=== PATIENT | female | born 1985 | race Caucasian/White ===

== ENCOUNTER 2016-04-03 08:23 | Outpatient (CLI) | payer BC | END 2016-04-03 08:24 | disposition home or self-care (01) | DX: F41.1 Generalized anxiety disorder (principal) ==

== ENCOUNTER 2018-05-06 14:12 | Outpatient (CLI) | payer BC ==
[2018-05-07 06:46] LABS: PROGESTERONE 7.4 ng/mL
== END 2018-05-06 14:13 | disposition home or self-care (01) ==
LOC: LAB 14:12
PROVIDERS: ATTEND Obstetrics & Gynecology
DX: Z32.01 Encounter for pregnancy test, result positive (principal)
CPT/HCPCS: 36415; 82670; 84144; 84702

== ENCOUNTER 2018-05-10 13:52 | Outpatient (CLI) | payer BC | END 2018-05-10 23:59 | disposition home or self-care (01) | LOC: LAB.S 13:52 | PROVIDERS: ATTEND Obstetrics & Gynecology | DX: Z32.01 Encounter for pregnancy test, result positive (principal) | CPT/HCPCS: 36415; 84702 ==

== ENCOUNTER 2018-05-18 18:18 | Outpatient (CLI) | payer BC ==
--- NOTE | 2018-05-19 15:46 | Ultrasound Report ---
Reason: TEST POSITIVE Procedure Date: 05/18/2018 Accession Number: [id number] / [id number] Procedure: US - OB First Trimester CPT Code: FULL RESULT: EXAM: FIRST TRIMESTER OBSTETRIC ULTRASOUND (Less than 11 weeks) EXAM DATE: 05/18/2018 07:19 PM. CLINICAL HISTORY: test positive. LMP: January 2018. COMPARISONS: None. TECHNIQUE: Transabdominal and transvaginal ultrasound examination with static image documentation. CLINICAL DATES: Unknown. ASSESSMENT: Gestational Sac: Single intrauterine. Mean gestational sac diameter: 12 mm = 5 weeks 4 days. Embryo: CRL (crown-rump length) not seen. Cardiac activity: Not seen. Yolk sac: Not seen. Amniotic fluid: Not seen. Early placenta: Not visible at this gestational age. Other: No perigestational fluid collection demonstrated. MATERNAL STRUCTURES: Uterus: Anteverted. Mildly heterogeneous endometrium. Cervix: Closed. Right Ovary/Adnexa: The ovary measures 2.4 x 1.7 x 1.4 cm, volume 2.9 cc. Note is made of a simple paraovarian cyst which measures up to 1.4 cm. Left Ovary/Adnexa: The ovary measures 2.4 x 3.1 x 1.8 cm, volume 7 cc. 0.7 cm likely corpus luteum cyst. Free Fluid: None. Other: None. IMPRESSION: 1. of unknown location. Intrauterine fluid collection, which could represent a gestational sac, cyst or focal fluid. If this is a gestational sac, size would correspond to a gestational age of 5 weeks 4 days. 2. Suggest clinical examination as well as close interval sonographic follow-up and serial beta hCG measurements as clinically indicated. RADIA
== END 2018-05-18 18:19 | disposition home or self-care (01) ==
LOC: DI 18:18
PROVIDERS: ATTEND Obstetrics & Gynecology
DX: Z32.01 Encounter for pregnancy test, result positive (principal)
CPT/HCPCS: 76801

== ENCOUNTER 2018-05-29 22:02 | Outpatient (CLI) | payer BC ==
--- NOTE | 2018-05-31 06:16 | Ultrasound Report ---
Reason: POSITIVE TEST - CONFIRM VIABILITY Procedure Date: 05/29/2018 Accession Number: [id number] / [id number] Procedure: US - OB First Trimester CPT Code: FULL RESULT: EXAM: FIRST TRIMESTER OBSTETRIC ULTRASOUND (Less than 11 weeks) EXAM DATE: 05/29/2018 10:23 PM. CLINICAL HISTORY: POSITIVE TEST - CONFIRM VIABILITY. LMP: Unknown. COMPARISONS: OB FIRST TRIMESTER 05/18/2018 6:24 PM. TECHNIQUE: Transabdominal and transvaginal ultrasound examination with static image documentation. CLINICAL DATES: EGA 7 weeks 1 day with SHAYY 01/24/2019 based on gestational sac measurement on prior ultrasound. ASSESSMENT: Gestational Sac: Single intrauterine. Mean gestational sac diameter: 18 mm. Embryo: None visualized.. Yolk sac: Not visualized.. Amniotic fluid: Not accurately assessed at this gestational age. Early placenta: Not visible at this gestational age. Other: 7 mm perigestational collection.. MATERNAL STRUCTURES: Uterus: Anteverted. Unremarkable. Cervix: Closed. Right Ovary/Adnexa: The ovary measures 2.6 x 2.2 x 1.8 cm, volume 5 cc. Stable right paraovarian cyst.. Left Ovary/Adnexa: The ovary measures 2.6 x 2.3 x 2.0 cm, volume 6 cc. 1.3 cm corpus luteum. Free Fluid: None. Other: None. IMPRESSION: 1. 18 mm gestational sac, without yolk sac or pole visualized, compatible with an anembryonic gestation. ARRON The critical result notification system was initiated by Dr. Delio Suggs at 12:29 AM on 05/30/2018. The above critical result findings were discussed with Dr. Velázquez by Dr. Delio Suggs at 12:39 AM on 05/30/2018.
== END 2018-05-29 22:03 | disposition home or self-care (01) ==
LOC: DI 22:02
PROVIDERS: ATTEND Registered Nurse
DX: O34.81 Maternal care for other abnormalities of pelvic organs, first trimester (principal); Z3A.01 Less than 8 weeks gestation of pregnancy
CPT/HCPCS: 76801; 76817

== ENCOUNTER 2018-05-31 08:00 | Outpatient (CLI) | payer BC | END 2018-05-31 23:59 | disposition home or self-care (01) | LOC: LAB.S 08:00 | PROVIDERS: ATTEND Obstetrics & Gynecology | DX: O20.0 Threatened abortion (principal) | CPT/HCPCS: 36415; 84702; 86850; 86900; 86901 ==

== ENCOUNTER 2018-06-02 13:32 | Outpatient (CLI) | payer BC | END 2018-06-02 13:33 | disposition home or self-care (01) | LOC: LAB.F 13:32 | PROVIDERS: ATTEND Obstetrics & Gynecology | DX: O20.0 Threatened abortion (principal) | CPT/HCPCS: 36415; 84702 ==

== ENCOUNTER 2018-07-12 16:09 | Outpatient (CLI) | payer BC ==
[2018-07-12 16:35] LABS: HGB - HEMOGLOBIN 13.3 g/dL (12.0-16.0); MEAN CORPUSCULAR HGB CONC 33.9 g/dL (32.0-36.0); MEAN CORPUSCULAR VOLUME 94.2 fL (81.0-99.0); MEAN PLATELET VOLUME 7.8 fL (7.9-10.8); RED BLOOD COUNT 4.16 10^6/uL (4.20-5.40)
[2018-07-12 17:04] LABS: T4 (THYROXINE) 8.9 ug/dL (6.09-12.23)
[2018-07-12 17:07] LABS: THYROID STIMULATING HORMONE 1.81 uIU/mL (0.34-5.60)
[2018-07-12 17:08] LABS: % IRON SATURATION 20 % (20-50); IRON 88 ug/dL (28-170); TOTAL IRON BINDING CAPACITY 448 ug/dL (250-450); TRANSFERRIN 320 mg/dL (192-382)
[2018-07-12 17:12] LABS: FERRITIN 34.3 ng/mL (11.0-306.8)
[2018-07-12 17:13] LABS: PROLACTIN 2.32 ng/mL
[2018-07-12 17:35] LABS: FOLLICLE STIMULATING HORMONE 7.96 mIU/mL
[2018-07-13 09:16] LABS: ESTRADIOL 42 pg/mL
[2018-07-14 15:46] LABS: DHEA SULFATE 385 mcg/dL (23-266)
== END 2018-07-12 16:10 | disposition home or self-care (01) ==
LOC: LAB 16:09
PROVIDERS: ATTEND Obstetrics & Gynecology
DX: O03.9 Complete or unspecified spontaneous abortion without complication (principal); E28.2 Polycystic ovarian syndrome; L65.9 Nonscarring hair loss, unspecified; N91.5 Oligomenorrhea, unspecified
CPT/HCPCS: 36415; 80053; 80061; 81599; 82627; 82670; 82728; 83001; 83540; 83721; 84146; 84436; 84443; 84466; 84702; 85027

== ENCOUNTER 2018-07-16 10:27 | Outpatient (CLI) | payer BC ==
[2018-07-16 18:29] LABS: ALBUMIN 4.3 g/dL (3.2-5.5); ALBUMIN/GLOBULIN RATIO 1.3 (1.0-2.2); ALKALINE PHOSPHATASE 55 IU/L (42-121); ALT ALANINE AMINOTRANSFERASE 13 IU/L (10-60); AST ASPARTATE AMINOTRANSFERASE 20 IU/L (10-42); BILIRUBIN,TOTAL 0.9 mg/dL (0.2-1.0); BUN - BLOOD UREA NITROGEN 13 mg/dL (6-20); CALCIUM 9.2 mg/dL (8.5-10.3); CARBON DIOXIDE - CO2 26 mmol/L (21-32); CHLORIDE 100 mmol/L (101-111); CHOL/HDL RATIO 3.1 (<4.4); CHOLESTEROL 209 mg/dL; CREATININE 0.6 mg/dL (0.4-1.0); GFR - MDRD 114 (>89); GLUCOSE 92 mg/dL (70-100); HDL CHOLESTEROL 67 mg/dL; LDL CHOLESTEROL,CALCULATED 128 mg/dL; LDL/HDL RATIO 1.9 (<4.4); SODIUM 136 mmol/L (135-145); TOTAL PROTEIN 7.5 g/dL (6.7-8.2); VLDL CHOLESTEROL 14 mg/dL
== END 2018-07-16 10:28 | disposition home or self-care (01) ==
LOC: LAB.F 10:27
PROVIDERS: ATTEND Obstetrics & Gynecology
DX: O03.9 Complete or unspecified spontaneous abortion without complication (principal); E28.2 Polycystic ovarian syndrome; L65.9 Nonscarring hair loss, unspecified
CPT/HCPCS: 36415; 80053; 80061; 81599; 83721

== ENCOUNTER 2018-09-16 15:04 | Outpatient (CLI) | payer BC ==
--- NOTE | 2018-09-17 11:42 | Ultrasound Report ---
Reason: POLYCYSTIC OVARIAN SYNDROME, SAB, OLIGOMENORRHEA Procedure Date: 09/16/2018 Accession Number: [id number] / [id number] Procedure: US - Pelvic w/Transvaginal CPT Code: FULL RESULT: EXAM: PELVIC ULTRASOUND EXAM DATE: 09/16/2018 05:39 PM. CLINICAL HISTORY: Polycystic ovarian syndrome, history of spontaneous , oligomenorrhea. COMPARISON: None. TECHNIQUE: Realtime transabdominal pelvic scan performed to identify the uterus and adnexa and as an overview of other pelvic structures, followed by transvaginal scan to provide greater detail of the uterus and adnexa, with static image documentation. FINDINGS: Uterus: 6.9 x 3.3 x 3.8 cm, volume 41 cc. Anteverted position. Normal overall size and echotexture. Masses: None. Endometrium: 5 mm. Normal. Cervix: Nabothian cysts are present. Right Ovary: 3.1 x 2.1 x 2.8 cm, volume 9.5 cc. The ovary is upper limits of normal in size and demonstrates small peripheral follicles. Follicles measure up to 1.4 cm maximally. No evidence for torsion. Left Ovary: 2.6 x 1.8 x 2.8 cm, volume 6.8 cc. Multiple small peripheral follicles are present. No evidence for torsion. Free Fluid: None. Other: None. IMPRESSION: 1. Multiple small peripheral follicles about the ovaries bilaterally which can be seen with polycystic ovarian syndrome in the correct clinical setting. 2. Normal endometrium. RADIA
== END 2018-09-16 15:05 | disposition home or self-care (01) ==
LOC: DI 15:04
PROVIDERS: ATTEND Obstetrics & Gynecology
DX: E28.2 Polycystic ovarian syndrome (principal); O03.9 Complete or unspecified spontaneous abortion without complication
CPT/HCPCS: 76830; 76856

== ENCOUNTER 2018-10-18 15:06 | Outpatient (CLI) | payer BC ==
[2018-10-18 15:44] LABS: HB2 TOTAL 14.3 g/dL; HEMOGLOBIN A1C 0.51 g/dL; HEMOGLOBIN A1C % 5.4 % (4.6-6.2)
== END 2018-10-18 15:07 | disposition home or self-care (01) ==
LOC: LAB 15:06
PROVIDERS: ATTEND Obstetrics & Gynecology
DX: E28.2 Polycystic ovarian syndrome (principal)
CPT/HCPCS: 36415; 82947; 83036

== ENCOUNTER 2019-02-05 09:49 | Outpatient (CLI) | payer BC ==
--- NOTE | 2019-02-05 21:14 | Ultrasound Report ---
Reason: ABD PAIN RUQ Procedure Date: 02/05/2019 Accession Number: [id number] / [id number] Procedure: US - Abdomen Limited CPT Code: Final Report FULL RESULT: EXAM: ABDOMEN ULTRASOUND LIMITED, RUQ EXAM DATE: 02/05/2019 10:24 AM. CLINICAL HISTORY: ABD PAIN RUQ. COMPARISON: None. TECHNIQUE: Real-time scanning was performed with static images obtained. FINDINGS: Liver: Normal in size and echotexture. 13.5 cm. Main portal vein flow: Hepatopetal. Gallbladder: Normal. No stones, wall thickening, or sonographic Vann's sign.A gall bladder polyp measuring 4 mm. Biliary System: CBD measures 3 mm. No intrahepatic or extrahepatic ductal dilatation. Other: Normal right kidney. Normal pancreas to the extent seen.No free fluid. IMPRESSION: A 4 mm GB polyp. No cholelithiasis or cholecystitis. RADIA
== END 2019-02-05 09:50 | disposition home or self-care (01) ==
LOC: DI 09:49
PROVIDERS: ATTEND Internal Medicine
DX: K82.4 Cholesterolosis of gallbladder (principal)
CPT/HCPCS: 76705

== ENCOUNTER 2019-03-23 15:36 | Outpatient (CLI) | payer BC ==
--- NOTE | 2019-03-24 15:44 | Ultrasound Report ---
Reason: POSITIVE TEST Procedure Date: 03/23/2019 Accession Number: [id number] / [id number] Procedure: US - OB First Trimester CPT Code: Final Report FULL RESULT: EXAM: FIRST TRIMESTER OBSTETRIC ULTRASOUND (Less than 11 weeks) EXAM DATE: 03/23/2019 04:39 PM. CLINICAL HISTORY: Positive test. LMP: 01/26/2019. COMPARISONS: OB FIRST TRIMESTER 05/29/2018 10:23 PM. TECHNIQUE: Transabdominal and transvaginal ultrasound examination with static image documentation. CLINICAL DATES: EGA 8 weeks 0 days with SHAYY 11/02/2019 based on LMP. ASSESSMENT: Gestational Sac: Single intrauterine. Mean gestational sac diameter: 21 mm = 7 weeks 0 days. Embryo: CRL (crown-rump length) 8 mm = 6 weeks 5 days. Cardiac activity: 135 beats per minute. Yolk sac: 5 mm. Amniotic fluid: Not accurately assessed at this gestational age. Early placenta: Not visible at this gestational age. Other: 15 x 18 mm perigestational fluid collection. MATERNAL STRUCTURES: Uterus: Anteverted. Unremarkable. Cervix: Closed. Right Ovary/Adnexa: The ovary measures 2.9 x 2.0 x 2.9 cm, volume 8.4 cc. 1.6 x 1.2 x 1.8 cm cyst. Left Ovary/Adnexa: The ovary measures 2.9 x 1.4 x 2.5 cm, volume 5.2 cc. 1.6 x 1.2 x 1.5 cm. BI-RAD SCORE: 6 (Known Biopsy With Proven Malignancy) 1.6 x 1.2 x 1.2 cm paraovarian cyst. Free Fluid: None. Other: None. IMPRESSION: 1. Single viable intrauterine at EGA 6 weeks 5 days with SHAYY 11/11/2019 based on crown-rump length. Possible dating discrepancy with LMP. 2. Small perigestational fluid collection. RADIA
== END 2019-03-23 15:37 | disposition home or self-care (01) ==
LOC: DI 15:36
PROVIDERS: ATTEND Obstetrics & Gynecology
DX: Z32.01 Encounter for pregnancy test, result positive (principal)
CPT/HCPCS: 76801; 76817

== ENCOUNTER 2019-04-07 08:00 | Outpatient (CLI) | payer BC ==
[2019-04-08 14:55] LABS: MUDS CUTOFF CONCENTRATIONS CUTOFF CONC BELOW:
[2019-04-08 15:19] LABS: BILIRUBIN,URINE NEGATIVE (NEGATIVE); GLUCOSE, URINE (UA) NEGATIVE (NEGATIVE); KETONES,URINE (UA) NEGATIVE (NEGATIVE); LEUKOCYTE ESTERASE, URINE TRACE (NEGATIVE); NITRITE,URINE NEGATIVE (NEGATIVE); OCCULT BLOOD,URINE NEGATIVE (NEGATIVE); PROTEIN,URINE NEGATIVE (NEGATIVE); UROBILINOGEN,URINE 0.2 (NORMAL) E.U./dL (NORMAL)
[2019-04-08 15:32] LABS: AMPHETAMINE SCREEN,URINE NEGATIVE (NEGATIVE); BENZODIAZEPINES SCREEN, URINE NEGATIVE (NEGATIVE); COCAINE SCREEN URINE NEGATIVE (NEGATIVE); METHADONE SCREEN, URINE NEGATIVE (NEGATIVE); METHAMPHETAMINES SCREEN, URINE NEGATIVE (NEGATIVE); OPIATE SCREEN, URINE NEGATIVE (NEGATIVE); OXYCODONE SCREEN, URINE NEGATIVE (NEGATIVE); PROPOXYPHENE SCREEN, URINE NEGATIVE (NEGATIVE); TRICYCLIC ANTIDEPRESSANT,URINE NEGATIVE (NEGATIVE)
[2019-04-08 15:55] LABS: BACTERIA,URINE Moderate /HPF (None Seen); CLARITY,URINE CLEAR (CLEAR); RBC,URINE None Seen /HPF (0-5); SQUAMOUS EPITHELIAL CELL,UR MOD Squamous (<= Few)
[2019-04-08 15:56] LABS: MUCUS,URINE Moderate Strands
[2019-04-08 23:01] LABS: TRICHOMONAS VAGINALIS DNA NEGATIVE (NEGATIVE)
== END 2019-04-07 23:59 | disposition home or self-care (01) ==
LOC: LAB.R 08:00
PROVIDERS: ATTEND Obstetrics & Gynecology
DX: Z36.89 Encounter for other specified antenatal screening (principal)
CPT/HCPCS: 80306; 81001; 87086; 87491; 87591; 87661

== ENCOUNTER 2019-04-19 15:08 | Outpatient (CLI) | payer BC ==
[2019-04-19 15:19] LABS: MUDS CUTOFF CONCENTRATIONS CUTOFF CONC BELOW:
[2019-04-19 17:10] LABS: BILIRUBIN,URINE NEGATIVE (NEGATIVE); GLUCOSE, URINE (UA) NEGATIVE (NEGATIVE); KETONES,URINE (UA) TRACE mg/dL (NEGATIVE); LEUKOCYTE ESTERASE, URINE TRACE (NEGATIVE); NITRITE,URINE NEGATIVE (NEGATIVE); OCCULT BLOOD,URINE NEGATIVE (NEGATIVE); PH,URINE 5.5 PH (5.0-7.5); PROTEIN,URINE NEGATIVE (NEGATIVE); UROBILINOGEN,URINE 0.2 (NORMAL) E.U./dL (NORMAL)
[2019-04-19 17:12] LABS: BASOPHILS # (AUTO) 0.1 10^3/uL (0.0-0.1); BASOPHILS % (AUTO) 0.8 %; EOSINOPHILS # (AUTO) 0.2 10^3/uL (0.0-0.7); EOSINOPHILS % (AUTO) 2.8 %; HGB - HEMOGLOBIN 12.9 g/dL (12.0-16.0); LYMPHOCYTES # (AUTO) 1.5 10^3/uL (1.5-3.5); LYMPHOCYTES % (AUTO) 18.8 %; MEAN CORPUSCULAR HEMOGLOBIN 30.5 pg (27.0-31.0); MEAN CORPUSCULAR HGB CONC 33.4 g/dL (32.0-36.0); MEAN CORPUSCULAR VOLUME 91.3 fL (81.0-99.0); MEAN PLATELET VOLUME 10.4 fL (7.9-10.8); MONOCYTES # (AUTO) 0.5 10^3/uL (0.0-1.0); MONOCYTES % (AUTO) 6.2 %; NEUTROPHILS # (AUTO) 5.5 10^3/uL (1.5-6.6); PLT - PLATELET COUNT 309 10^3/uL (130-450); RED BLOOD COUNT 4.23 10^6/uL (4.20-5.40); RED CELL DISTRIBUTION WIDTH 11.1 % (12.0-15.0); WHITE BLOOD COUNT 7.8 x10^3/uL (4.8-10.8)
[2019-04-19 17:18] LABS: CLARITY,URINE CLOUDY (CLEAR)
[2019-04-19 17:19] LABS: AMPHETAMINE SCREEN,URINE NEGATIVE (NEGATIVE); BENZODIAZEPINES SCREEN, URINE NEGATIVE (NEGATIVE); COCAINE SCREEN URINE NEGATIVE (NEGATIVE); METHADONE SCREEN, URINE NEGATIVE (NEGATIVE); METHAMPHETAMINES SCREEN, URINE NEGATIVE (NEGATIVE); OPIATE SCREEN, URINE NEGATIVE (NEGATIVE); OXYCODONE SCREEN, URINE NEGATIVE (NEGATIVE); PROPOXYPHENE SCREEN, URINE NEGATIVE (NEGATIVE); TRICYCLIC ANTIDEPRESSANT,URINE NEGATIVE (NEGATIVE)
[2019-04-19 17:38] LABS: % IRON SATURATION 27 % (20-50); IRON 126 ug/dL (28-170); TOTAL IRON BINDING CAPACITY 462 ug/dL (250-450); TRANSFERRIN 330 mg/dL (192-382)
[2019-04-19 17:43] LABS: FERRITIN 77.4 ng/mL (11.0-306.8)
[2019-04-19 17:47] LABS: AMORPHOUS SEDIMENT,UR Marked /LPF; BACTERIA,URINE None Seen /HPF (None Seen); RBC,URINE 0-5 /HPF (0-5); SQUAMOUS EPITHELIAL CELL,UR FEW Squamous (<= Few)
[2019-04-19 22:05] LABS: TRICHOMONAS VAGINALIS DNA NEGATIVE (NEGATIVE)
[2019-04-20 12:26] LABS: HEPATITIS C ANTIBODY NON-REACTIVE (NON-REACTIVE)
[2019-04-20 12:27] LABS: HEPATITIS B SURFACE ANTIGEN NON-REACTIVE (NON-REACTIVE)
[2019-04-20 14:15] LABS: HIV AG/AB 4TH GEN NON-REACTIVE (NON-REACTIVE)
== END 2019-04-19 15:09 | disposition home or self-care (01) ==
LOC: LAB.S 15:08
PROVIDERS: ATTEND Obstetrics & Gynecology
DX: Z34.00 Encounter for supervision of normal first pregnancy, unspecified trimester (principal); Z36.89 Encounter for other specified antenatal screening; L65.9 Nonscarring hair loss, unspecified
CPT/HCPCS: 36415; 80306; 81001; 81599; 82728; 83540; 84443; 84466; 85025; 86592; 86762; 86803; 86850; 86900; 86901; 87086; 87340; 87389; 87491; 87591; 87661

== ENCOUNTER 2019-06-03 14:21 | Outpatient (CLI) | payer BC | END 2019-06-03 23:59 | disposition home or self-care (01) | LOC: LAB.WCP 14:21 | PROVIDERS: ATTEND Obstetrics & Gynecology | DX: Z34.00 Encounter for supervision of normal first pregnancy, unspecified trimester (principal); Z36.9 Encounter for antenatal screening, unspecified | CPT/HCPCS: 36415; 81599; 82105; 82950 ==

== ENCOUNTER 2019-09-02 12:50 | Outpatient (CLI) | payer BC ==
[2019-09-02 20:30] LABS: HGB - HEMOGLOBIN 11.4 g/dL (12.0-16.0); MEAN CORPUSCULAR HEMOGLOBIN 31.8 pg (27.0-31.0); MEAN CORPUSCULAR HGB CONC 32.6 g/dL (32.0-36.0); MEAN CORPUSCULAR VOLUME 97.8 fL (81.0-99.0); RED BLOOD COUNT 3.58 10^6/uL (4.20-5.40); RED CELL DISTRIBUTION WIDTH 12.3 % (12.0-15.0); WHITE BLOOD COUNT 10.6 x10^3/uL (4.8-10.8)
== END 2019-09-02 12:51 | disposition home or self-care (01) ==
LOC: LAB.S 12:50
PROVIDERS: ATTEND Obstetrics & Gynecology
DX: Z34.90 Encounter for supervision of normal pregnancy, unspecified, unspecified trimester (principal)
CPT/HCPCS: 36415; 82950; 85027

== ENCOUNTER 2019-10-18 15:50 | Outpatient (CLI) | payer BC | END 2019-10-18 23:59 | disposition home or self-care (01) | LOC: LAB.R 15:50 | PROVIDERS: ATTEND Obstetrics & Gynecology | DX: Z36.85 Encounter for antenatal screening for Streptococcus B (principal) | CPT/HCPCS: 81599; 87491; 87591; 87797 ==

== ENCOUNTER 2019-11-18 07:12 | Inpatient (IN) | payer BC ==
[2019-11-18] MEDS ORDERED: SODIUM CHLORIDE FLUSH 0.9% 10 ML SYRINGE IVP PRN (08:30)
[2019-11-18] MEDS ORDERED: OXYTOCIN 10 UNIT/ML VIAL IM PRN (08:30)
[2019-11-18] MEDS ORDERED: CARBOPROST TROMETHAMINE 250 MCG/ML AMP IM PRN (08:30)
[2019-11-18] MEDS ORDERED: OXYTOCIN/SODIUM CHLORIDE 500 ML IV PRN (08:30)
[2019-11-18] MEDS ORDERED: LIDOCAINE-MPF 1% 30 ML VIAL ID PRN (08:30)
[2019-11-18] MEDS ORDERED: TRANEXAMIC ACID 1,000 MG in SODIUM CHLORIDE 0.9% 100ML 100 ML IV PRN (08:30)
[2019-11-18] MEDS ORDERED: miSOPROStoL 200 MCG TABLET BC PRN (08:30)
[2019-11-18] MEDS ORDERED: METHYLERGONOVINE 0.2 MG/ML VIAL IM PRN (08:30)
[2019-11-18] MEDS ORDERED: SODIUM CHLORIDE FLUSH 0.9% 10 ML SYRINGE IVP SCH (09:00)
[2019-11-18] MEDS ORDERED: miSOPROStoL 100 MCG TABLET VG SCH (09:00)
[2019-11-18] MEDS ORDERED: CALCIUM CARBONATE CHEW 500 MG TABLET PO PRN (09:01)
[2019-11-18] MEDS: LACTATED RINGERS 1,000 ML IV SCH ×2 (09:51→21:27)
[2019-11-18] MEDS: miSOPROStoL 100 MCG TABLET BC SCH ×2 (09:56→14:42)
--- NOTE | 2019-11-18 10:04 | HISTORY & PHYSICAL EXAMINATION ---
Admit History - Visit Reason Visit Reason: Other - : 3 Parity: 0 Premature: 0 Ectopic: 0 : 2 Care: positive: [facility] Risk/History: positive: None Complications This : positive: None Smoking Status: Never smoker - Mother's Labs Mother's Blood Type: positive: O Mother's RH: positive: Positive GBS: positive: Group B Step Negative Rubella Status: positive: Immune Meds/Allgy - Allergies Allergies/Adverse Reactions: Allergies Allergy/AdvReac Type Severity Reaction Status Date / Time Fish Containing Products Allergy Unknown Verified 11/18/19 08:47 shellfish derived Allergy Unknown Verified 11/18/19 08:47 Review of Systems - Constitutional Constitutional: denies: Fatigue, Fever, Chills - Eyes Eyes: denies: Blurred vision, Spots in vision, Dipolpia - Cardiovascular Cariovascular: denies: Irregular heart rate, Palpitations, Chest pain, Edema - Respiratory Respiratory: denies: Cough, SOB at rest - Gastrointestinal Gastrointestinal: denies: Change in bowel habits - Integumentary Integumentary: denies: Rash, Pruritis - Neurological Neurological: denies: Headache Physical - Abdominal Exam Vital Signs: Temp Pulse Resp BP Pulse Ox 37.2 C 96 20 132/88 H 11/18/19 07:37 11/18/19 07:37 11/18/19 07:37 11/18/19 07:37 Contraction Frequency (min/apart): 2-3 Contraction Intensity: positive: Mild Uterine Resting Tone: positive: Soft - Monitoring Heart Rate Baseline: 135 Strip Review: positive: Category I - Presentation Presentation: positive: Vertex - Vaginal Exam Membranes: positive: Membranes intact Dilation (in cm): closed Plan for Labor - Plan For Labor I expect patient to be DC'd or transferred within 96 hours.: Yes Plan for Labor: HPI: Samantha is a 34yo @ 41.0wks by 6.5wk U/S presents to [facility] for medical induction of labor secondary to postdates . She has been a patient of [facility] through the duration of her which has remained uncomplicated. She denies vaginal bleeding or leakage of fluid. She denies contractions which she can appreciate and was surprised to see contractions via tocometry on the monitor. She reports +FM. She will be admitted to [facility] for active management. DATING: LMP 01/26/19--> SHAYY 11/02/2019 US on 03/23/2019 at 6w5d gives SHAYY 11/11/2019; NOT consistent with dates SHAYY definitive 11/11/2019 OB Hx: G1: SAB @ 8wks 06/2018 G2: Chemical 01/2019 G3: Current Medications: PNV; Famotidine; Zyrtex; Vitamin B6; Cod liver oil; Magnesium 400mg daily Allergies: Azithromycin (moderate); Fish (Critical) PMHx: Anxiety, BOWIE/migraines; PCOS; infertility Surgical Hx: None Social Hx: Never smoker, no ETOH or IVDA. Lives in [place], [place] with (mylene aguila) Family Hx: Diabetes- MGM; Thyroid disorder - Mother; Lymphoma- MGM O pos/Rub imm NIPT 46 XX with AFP wnl FAS Declined after extensive counseling regarding rsks. TDAP at 28 wga. Reviewed import. Declines despite [employer] travel counselor Flu: Declined 11/10/2019 Early glucola 114. Glucola 102 Breast pump Rx: Rx provided HSV: denies GBS neg Agrees to 36 week bedside us--> vertex Anticipate Pap NILM 05/30/19 Physical Exam: Normocephalic, atraumatic Heart RRR w/o M/G/R Lungs CTAB Abdomen gravid, soft, notender FHR baseline 130, moderate variability, + accels, no decels Contractions palpate mild every 2-3 minutes with soft resting tone. Pt unable to appreciate contractions. SVE in office yesterday closed/70/medium, high, posterior, vertex. SVE deferred today Bilateral LE's no edema Mood is good. Assessment: 34yo @ 41.0wks gestation by 6.5wk U/S Postdates Medical induction of labor secondary to postdates GBS negative Plan: Place in observation status for preinduction cervical ripening with misoprostol Admit with active labor, SROM, epidural placement or initiations of pitocin Continuous monitoring Anticipate Pt and at the bedside verbalized understanding and agrees to above plan. She denies further questions or concerns at this time.
[2019-11-18 10:15] LABS: BASOPHILS # (AUTO) 0.1 10^3/uL (0.0-0.1); BASOPHILS % (AUTO) 0.6 %; EOSINOPHILS # (AUTO) 0.2 10^3/uL (0.0-0.7); EOSINOPHILS % (AUTO) 2.3 %; HGB - HEMOGLOBIN 11.2 g/dL (12.0-16.0); LYMPHOCYTES # (AUTO) 1.3 10^3/uL (1.5-3.5); MEAN CORPUSCULAR HEMOGLOBIN 29.9 pg (27.0-31.0); MEAN CORPUSCULAR HGB CONC 32.3 g/dL (32.0-36.0); MEAN CORPUSCULAR VOLUME 92.5 fL (81.0-99.0); MEAN PLATELET VOLUME 10.1 fL (7.9-10.8); MONOCYTES # (AUTO) 0.7 10^3/uL (0.0-1.0); MONOCYTES % (AUTO) 6.5 %; PLT - PLATELET COUNT 322 10^3/uL (130-450); RED BLOOD COUNT 3.75 10^6/uL (4.20-5.40); RED CELL DISTRIBUTION WIDTH 13.2 % (12.0-15.0); WHITE BLOOD COUNT 10.3 x10^3/uL (4.8-10.8)
--- NOTE | 2019-11-18 19:09 | PROVIDER PROGRESS NOTE ---
Labor Progress Note - Uterine Monitoring Uterine Monitoring Mode: positive: External toco Contraction Frequency (min/apart): 2-5 Contraction Intensity: positive: Moderate Uterine Resting Tone: positive: Soft - Monitoring Monitor Mode: positive: External ultrasound Heart Rate Baseline: 130 Heart Rate Variability: positive: Moderate (6-25 bmp) Accelerations: positive: Present, 15x15 Decelerations: positive: None Strip Review: positive: Category I - Labor Progress Note Labor Progress Note/Additional Text: S: Breathing through contractions in the jacuzzi. Feeling increased frequency and intensity of contractions but overall coping well. O: FHR baseline 135, moderate variability, + accels, no decels Contractions palpate moderate every 3-5 minutes with soft resting tone. s/p 2 doses of 50mcg buccual misoprostol SVE deferred A: 34yo @ 41.0wks gestation postdates FHR Category I GBS neg P: Continuous monitoring Hold misoprostol until next SVE Anticipate
--- NOTE | 2019-11-18 19:30 | PROVIDER PROGRESS NOTE ---
Labor Progress Note - Uterine Monitoring Uterine Monitoring Mode: positive: External toco Contraction Frequency (min/apart): 2-3 Contraction Intensity: positive: Moderate Uterine Resting Tone: positive: Soft - Monitoring Monitor Mode: positive: External ultrasound Heart Rate Baseline: 135 Heart Rate Variability: positive: Moderate (6-25 bmp) Accelerations: positive: Present, 15x15 Decelerations: positive: None Strip Review: positive: Category I - Vaginal Exam Dilation (in cm): 2-3 Effacement (%): 60 Station: -1 Cervical Position: Midposition - Labor Progress Note Labor Progress Note/Additional Text: S: Breathing through contractions. Pt requests epidural for pain management. D esires epidural placement prior to initiation of pitocin. supportive at the bedside. O: SVE 2-3/70/-1, midposition, soft, vertex FHR basleine 135, moderate variability, + accels, no decels Contractions palpate moderate every 2-4 minutes with soft resting tone SROM x 5hrs - afebrile A: 34yo @ 41.0wks gestation by 6.5wk U/S Early labor post-dates GBS neg P: Anesthesia notified to present for placement of epidural Initiate pitocin with titration per protocol for induction of labor secondary to post-dates Continuous monitoring Anticipate Reviewed plan of care with pt and and bedside who verbalized understanding and are in agreement with the above plan. They deny further questions or concerns at this time.
[2019-11-18] MEDS ORDERED: OXYTOCIN/SODIUM CHLORIDE 500 ML IV SCH (20:00)
[2019-11-18] MEDS ORDERED: ROPIVACAINE 0.2% PF 20ML VIAL ONE (20:18)
[2019-11-18] MEDS ORDERED: ROPIVACAINE 0.2% 200 MG/100 ML BAG EP ONE (20:18)
[2019-11-18] MEDS ORDERED: ONDANSETRON 4 MG/2 ML VIAL IVP PRN (20:52)
[2019-11-18] MEDS ORDERED: METOCLOPRAMIDE 10 MG/2 ML VIAL IVP PRN (20:52)
[2019-11-18] MEDS ORDERED: ROPIVACAINE 0.2% 200 MG/100 ML BAG EP PRN (20:52)
[2019-11-18] MEDS ORDERED: ePHEDrine 50 MG/ML VIAL IVP PRN (20:52)
[2019-11-18] MEDS ORDERED: diphenhydrAMINE INJ 50 MG/ML VIAL IVP PRN (20:52)
[2019-11-18] MEDS ORDERED: NALBUPHINE 10 MG/ML AMP IVP PRN (20:52)
[2019-11-18] MEDS ORDERED: NALOXONE 0.4 MG/ML VIAL IVP PRN (20:52)
--- NOTE | 2019-11-18 20:52 | ANESTHESIA ---
Pre-Anesthesia VS, & Labs - Diagnosis Term labor, IUP - Procedure Epidural for Vital Signs: Temp Pulse Resp BP Pulse Ox 37.2 C 96 20 132/88 H 11/18/19 07:37 11/18/19 07:37 11/18/19 07:37 11/18/19 07:37 Height: 5 ft 6 in Weight (kg): 94.347 kg Body Mass Index: 33.5 BMI Classification: Obese - NPO Last Fluid Intake: t/o day Last Food Intake: full dinner - Is Patient ?: Yes - Lab Results Current Lab Results: Laboratory Tests 11/18/19 10:55: Blood Type O POSITIVE, Antibody Screen NEGATIVE 11/18/19 09:42: WBC 10.3, RBC 3.75 L, Hgb 11.2 L, Hct 34.7 L, MCV 92.5, MCH 29.9, MCHC 32.3, RDW 13.2, Plt Count 322, MPV 10.1, Neut # (Auto) 8.0 H, Lymph # (Auto) 1.3 L, [place] # (Auto) 0.7, Eos # (Auto) 0.2, Baso # (Auto) 0.1, Absolute Nucleated RBC 0.00, Nucleated RBC % 0.0 Lab results reviewed: Yes Fish Bones: 11/18/19 09:42 Home Medications and Allergies Active Medications Calcium Carbonate/Glycine (Tums) 500 mg PO TID PRN PRN Reason: Heartburn Carboprost Tromethamine (Hemabate) 250 mcg IM Q15M PRN PRN Reason: Step 4: Hemorrhage protocol Stop: 11/23/19 08:32 Oxytocin/Sodium Chloride (Pitocin/Sodium Chloride) 500 mls @ 999 mls/hr IV PRN PRN; Protocol PRN Reason: POST- HEMORR PREVENTION Stop: 11/23/19 08:32 Tranexamic Acid 1,000 mg/ (Sodium Chloride) 110 mls @ 660 mls/hr IV .ONCE PRN PRN Reason: EBL >1200mL and within 3hr Stop: 11/23/19 08:32 Lactated Ringer's (Lr) 1,000 mls @ 100 mls/hr IV .Q10H NEIL Last Infusion: 11/18/19 10:23 Dose: 0 mls/hr Documented by: Oxytocin/Sodium Chloride (Pitocin/Sodium Chloride) 500 mls @ 1 mls/hr IV TITR NEIL; Protocol Lidocaine HCl (Xylocaine-Mpf 1% Vial) 30 ml ID .ONCE PRN PRN Reason: PERINEAL REPAIR Stop: 11/23/19 08:32 Methylergonovine Maleate (Methergine Inj) 0.2 mg IM .ONCE PRN PRN Reason: Step 2: Hemorrhage protocol Stop: 11/23/19 08:32 Misoprostol (Cytotec) 800 mcg BC .ONCE PRN PRN Reason: Step 3: Hemorrhage protocol Stop: 11/23/19 08:32 Misoprostol (Cytotec) 50 mcg BC Q4H NEIL Last Admin: 11/18/19 14:42 Dose: 50 mcg Documented by: Oxytocin (Pitocin) 10 unit IM .ONCE PRN PRN Reason: Step one: If no IV access Stop: 11/23/19 08:32 Sodium Chloride (Normal Saline Flush 0.9%) 10 ml IVP 0100,0900,1700 NEIL Sodium Chloride (Normal Saline Flush 0.9%) 10 ml IVP PRN PRN PRN Reason: NEEDED PER PROVIDER ORDERS Allergies/Adverse Reactions: Allergies Allergy/AdvReac Type Severity Reaction Status Date / Time Fish Containing Products Allergy Unknown Verified 11/18/19 08:47 shellfish derived Allergy Unknown Verified 11/18/19 08:47 Anes History & Medical History - Anesthetic History Anesthesia Complications: reports: No previous complications Family history of Anesthesia Complications: Denies Family history of Malignant Hyperthermia: Denies - Medical History Cardiovascular: reports: None Pulmonary: reports: None Gastrointestinal: reports: None Urinary: reports: None Neuro: reports: None Musculoskeletal: reports: None Endocrine/Autoimmune: reports: None Blood Disorders: reports: None Skin: reports: None Smoking Status: Never smoker Psychosocial: reports: No issues indicated History of Cancer?: No - Obstetrical History : 3 Parity: 0 Events: positive: None Complications: positive: None Exam General: Alert, Oriented x3, Cooperative Dental: WNL Mouth Opening: Greater than 4 Fingerbreadths Neck Mobility: Normal Mallampati classification: II Thyromental Distance: greater than 6 cm Respiratory: No respiratory distress Cardiovascular: Regular rate Neurological: Normal speech Mental/Cognitive Status: Alert/Oriented X3, Normal for patient Cognitive Status: Within normal limits Plan Anesthesia Type: Epidural Consent for Procedure(s) Verified and Reviewed: Yes Code Status: Attempt Resuscitation ASA classification: 2-Mild systemic disease Is this case an emergency?: No
--- NOTE | 2019-11-19 01:09 | PROVIDER PROGRESS NOTE ---
Labor Progress Note - Uterine Monitoring Uterine Monitoring Mode: positive: External toco Contraction Frequency (min/apart): 2-4 Contraction Intensity: positive: Strong Uterine Resting Tone: positive: Soft - Monitoring Monitor Mode: positive: External ultrasound Heart Rate Baseline: 130 Heart Rate Variability: positive: Moderate (6-25 bmp) Accelerations: positive: Present, 15x15 Decelerations: positive: Early, Late, Variable, Intermittent (<50% x20 min) Strip Review: positive: Category II - Vaginal Exam Dilation (in cm): 9 Effacement (%): 90 Station: -1 - Labor Progress Note Labor Progress Note/Additional Text: S: Patient comfortable with epidural in bed. Using peanut ball in left lateral position. Pt able to appreciate uterine contractions and feels increased vaginal and rectal pressure with contractions however remains comfortable with epidural. supportive at the bedside. O: FHR baseline 125, moderate variability, +accels, intermittent late decelerations with overall reassuring pattern SVE 9/90/-1, vertex Pitocin currently at 0. Maximum infusion rate 4mU/mL. A: 34yo @ 41.1wks gestation by 6.5wk U/S Active labor FHR Category II - overall reassuring Postdates SROM x 11 hours P: Continuous monitoring Continue left lateral position with peanut ball x 30 minutes unless otherwise indicated Anticipate
--- NOTE | 2019-11-19 03:54 | PROVIDER PROGRESS NOTE ---
Labor Progress Note - Uterine Monitoring Uterine Monitoring Mode: positive: External toco Contraction Frequency (min/apart): 2-4 Contraction Intensity: positive: Strong Uterine Resting Tone: positive: Soft - Monitoring Monitor Mode: positive: External ultrasound Heart Rate Variability: positive: Moderate (6-25 bmp) Accelerations: positive: Present, 15x15 Decelerations: positive: Late, Recurrent (>50% x20 min) Strip Review: positive: Category II - Vaginal Exam Dilation (in cm): 10 Effacement (%): 100 Station: 0 - Labor Progress Note Labor Progress Note/Additional Text: S: Patient pushing with contractions. Experiencing some right sided abdominal discomfort which she states feels distracting when she is trying to push. Has pushed her epidural FREIGHT BOOKER x3 times without relief. supportive at the bedside. O: SVE c/c/0 (0254) FHR baseline 130, moderate variability, + accels, recurrent late decelerations to 110 - overall reassuring Contractions palpate strong every 3-5 minutes with soft resting tone Pitocin initiated to achieve adequate contraction pattern currently infusing at 2mU/mL Active, spontaneous pushing effort x 40 minutes with little change in station. Poor maternal pushing effort. SROM x 14.5hrs A: 34yo @ 41.1wks gestation FHR Category II-overall reassuring Active labor Postdates GBS neg P: Continuous monitoring Continue pitocin infusion via IV with titration per protocol Anesthesia notified and presence requested at the bedside for evaluation of inadequate pain control Cessation of pushing at this time secondary to poor maternal pushing effort related to poor pain control Will resume pushing with pt more comfortable unless otherwise indicated by status.
[2019-11-19] MEDS ORDERED: fentaNYL 100 MCG/2 ML VIAL ONE (04:12)
--- NOTE | 2019-11-19 04:24 | ANESTHESIA PROCEDURE NOTE ---
Anesthesia Epidural Template - Patient Report Patient Reports: positive: Inadequate control - Other Comments Other Comments: Called to 2301 for sharp right sided lower abd pain with contractions. Now complete in dilation and pain atarted with pushing through contractions. Pt with R side down. Bolus of Fentanyl 100mcg diluted in 10cc NS. Pt states relief of pain after 10mins.
--- NOTE | 2019-11-19 04:44 | PROVIDER PROGRESS NOTE ---
Labor Progress Note - Uterine Monitoring Uterine Monitoring Mode: positive: External toco Contraction Frequency (min/apart): 2-5 Contraction Intensity: positive: Strong Uterine Resting Tone: positive: Soft - Monitoring Monitor Mode: positive: External ultrasound Heart Rate Baseline: 120 Heart Rate Variability: positive: Moderate (6-25 bmp) Accelerations: positive: Present, 15x15 Decelerations: positive: Late, Intermittent (<50% x20 min) Strip Review: positive: Category I - Labor Progress Note Labor Progress Note/Additional Text: Rest period x 1 hour. Pt now comfortable with epidural anesthesia. Resume spontaneous active pushing.
--- NOTE | 2019-11-19 06:24 | PROVIDER PROGRESS NOTE ---
Labor Progress Note - Uterine Monitoring Uterine Monitoring Mode: positive: External toco Contraction Frequency (min/apart): 2-5 Contraction Intensity: positive: Strong Uterine Resting Tone: positive: Soft - Monitoring Monitor Mode: positive: External ultrasound Heart Rate Baseline: 115 Heart Rate Variability: positive: Moderate (6-25 bmp) Accelerations: positive: Present, 15x15 Decelerations: positive: Variable, Intermittent (<50% x20 min) Strip Review: positive: Category II - Labor Progress Note Labor Progress Note/Additional Text: Pt becoming continually fatigued with adequate maternal pushing effort. She is feeling discouraged and very tired. Minimal to no decent. Pitocin initiated via IV to achieve adequate uterine contractions however secondary to decelerations it was necessary to turn pitocin off. Pt has adequate anesthesia. Dr. Wynn presents to bedside for evaluation of the patient secondary to failure of decent of fetus. Pt verbalized desire to proceed with delivery. S: Pt fatigued. Expresses desire to proceed to delivery if possible. supportive at the bedside. O: FHR baseline 115, moderate variability, + accels, intermittent variable decelerations Contractions palpate firm every 2-5 minutes with soft resting tone Despite adequate contractions and adequate maternal pushing effort, no decent has occurred. Development of significant caput noted to +1. A: 34yo @ 41.1wks gestation Active labor Failure of fetus to descend in maternal pelvis Postdates GBS neg P: Dr. Wynn present at the bedside to evaluate patient and recommends proceeding to delivery secondary to failure of descent. Care handed to physician for continued management.
--- NOTE | 2019-11-19 06:49 | PROVIDER PROGRESS NOTE ---
Subjective - Prog Note Date Prog Note Date: 11/19/19 Prog Note Time: 06:45 - Subjective Pt reports feeling: No change Subjective: Sindy Aguilar's note reviewed. No head decent. Late decelerations with pushing and contractions. Mother and father reviewed C/S risks and benefits explained. Questions asked and answered. Nursing supervisor drying and winding told to call team in. Objective - Vital Signs/Intake & Output Intake & Output: Intake & Output 11/16/19 11/17/19 11/18/19 11/19/19 23:59 23:59 23:59 23:59 Intake Total 532.8 Balance 532.8 - Lab Results Fish Bones: 11/18/19 09:42 Other Labs: Lab Results x24hrs 11/18/19 11/18/19 Range/Units 10:55 09:42 WBC 10.3 (4.8-10.8) x10^3/uL RBC 3.75 L (4.20-5.40) 10^6/uL Hgb 11.2 L (12.0-16.0) g/dL Hct 34.7 L (37.0-47.0) % MCV 92.5 (81.0-99.0) fL MCH 29.9 (27.0-31.0) pg MCHC 32.3 (32.0-36.0) g/dL RDW 13.2 (12.0-15.0) % Plt Count 322 (130-450) 10^3/uL MPV 10.1 (7.9-10.8) fL Neut # (Auto) 8.0 H (1.5-6.6) 10^3/uL Lymph # (Auto) 1.3 L (1.5-3.5) 10^3/uL Will # (Auto) 0.7 (0.0-1.0) 10^3/uL Eos # (Auto) 0.2 (0.0-0.7) 10^3/uL Baso # (Auto) 0.1 (0.0-0.1) 10^3/uL Absolute Nucleated RBC 0.00 x10^3/uL Nucleated RBC % 0.0 /100WBC Blood Type O POSITIVE Antibody Screen NEGATIVE
[2019-11-19] MEDS ORDERED: LIDOCAINE 2%-EPI 1:100000 20 ML MDV SUBQ ONE (07:24)
[2019-11-19] MEDS ORDERED: fentaNYL 100 MCG/2 ML VIAL IVP ONE (07:24)
[2019-11-19] MEDS ORDERED: HYDROmorphone 1 MG/ML CARPUJECT IVP ONE (07:24)
[2019-11-19] MEDS ORDERED: DEXAMETHASONE 4 MG/ML VIAL IVP ONE (07:24)
[2019-11-19] MEDS ORDERED: TRANEXAMIC ACID 1,000 MG/10 ML VIAL IV ONE (07:24)
[2019-11-19] MEDS ORDERED: ACETAMINOPHEN 1,000 MG/100 ML 100 ML IV ONE (07:24)
[2019-11-19] MEDS ORDERED: ONDANSETRON 4 MG/2 ML VIAL IVP ONE (07:24)
[2019-11-19] MEDS ORDERED: ePHEDrine 50 MG/ML VIAL IVP ONE (07:24)
[2019-11-19] MEDS ORDERED: KETOROLAC 30 MG/ML VIAL IVP ONE (07:24)
[2019-11-19] MEDS ORDERED: BUPIVACAINE 0.25% PF 30 ML VIAL SUBQ ONE (08:26)
[2019-11-19] MEDS ORDERED: BUPIVACAINE 0.25% PF 30 ML VIAL ONE (08:29)
[2019-11-19] MEDS ORDERED: diphenhydrAMINE 25 MG CAPSULE PO PRN (08:37)
[2019-11-19] MEDS ORDERED: SODIUM CHLORIDE FLUSH 0.9% 10 ML SYRINGE IVP PRN (08:37)
[2019-11-19] MEDS ORDERED: oxyCODONE 5 MG TABLET PO PRN (08:37)
[2019-11-19] MEDS ORDERED: SODIUM CHLORIDE 0.9% 1,000 ML IV ONE (08:38)
[2019-11-19] MEDS ORDERED: LACTATED RINGERS 1,000 ML IV ONE (08:38)
--- NOTE | 2019-11-19 08:43 | OPERATIVE REPORT ---
Operative Report - General Admit Date: 11/18/19 Procedure Date: 11/19/19 Planned Procedure: PLTC/S Pre-Op Diagnosis: Arrest of decent Procedure Performed: PLTC/S - Procedure Note Primary Surgeon: Landon Wynn MD Secondary Surgeon: Sindy Aguilar CRNA Anesthesia Provider: Jacqueline Farr CRNA Anesthesia Technique: Epidural Pathology: Placenta IV Fluids (mL): 800 Estimated Blood Loss (mL): 800 Urine Output (mL): 150
[2019-11-19] MEDS ORDERED: SODIUM CHLORIDE FLUSH 0.9% 10 ML SYRINGE IVP SCH (09:00)
[2019-11-19] MEDS: LACTATED RINGERS 1,000 ML IV SCH ×2 (12:10→21:16)
--- NOTE | 2019-11-19 12:31 | ANESTHESIA POST OP EVALUATION ---
Anesthesia Post Eval - Post Anesthesia Eval Vitals: Last Vital Signs Temp 37.1 C 11/19/19 12:05 Pulse 71 11/19/19 12:05 Resp 18 11/19/19 12:05 BP 114/67 11/19/19 12:05 Pulse Ox 97 11/19/19 12:05 CV Function Including HR & BP: positive: Stable Pain Control: positive: Satisfactory Nausea & Vomiting: positive: Negative Mental Status: positive: Baseline Respiratory Status: Airway Patent Hydration Status: Satisfactory Anesthesia Complications: positive: None (Awake alert and bonding with )
[2019-11-19] MEDS: ACETAMINOPHEN 500 MG TABLET PO SCH ×2 (13:11→20:59)
[2019-11-19] MEDS: KETOROLAC 30 MG/ML VIAL IVP SCH ×2 (17:00→23:04)
[2019-11-19] MEDS: DOCUSATE SODIUM 100 MG CAPSULE PO SCH (20:58)
[2019-11-20] MEDS: ACETAMINOPHEN 500 MG TABLET PO SCH ×3 (04:47→20:40)
[2019-11-20] MEDS: KETOROLAC 30 MG/ML VIAL IVP SCH (04:47)
[2019-11-20 06:44] LABS: BASOPHILS # (AUTO) 0.1 10^3/uL (0.0-0.1); BASOPHILS % (AUTO) 0.5 %; EOSINOPHILS # (AUTO) 0.1 10^3/uL (0.0-0.7); EOSINOPHILS % (AUTO) 0.5 %; HGB - HEMOGLOBIN 9.1 g/dL (12.0-16.0); LYMPHOCYTES # (AUTO) 1.7 10^3/uL (1.5-3.5); MEAN CORPUSCULAR HEMOGLOBIN 29.8 pg (27.0-31.0); MEAN CORPUSCULAR HGB CONC 31.8 g/dL (32.0-36.0); MEAN CORPUSCULAR VOLUME 93.8 fL (81.0-99.0); MEAN PLATELET VOLUME 9.8 fL (7.9-10.8); NEUTROPHILS # (AUTO) 14.1 10^3/uL (1.5-6.6); NEUTROPHILS % (AUTO) 82.2 %; PLT - PLATELET COUNT 239 10^3/uL (130-450); RED BLOOD COUNT 3.05 10^6/uL (4.20-5.40); RED CELL DISTRIBUTION WIDTH 13.8 % (12.0-15.0); WHITE BLOOD COUNT 17.1 x10^3/uL (4.8-10.8)
--- NOTE | 2019-11-20 06:47 | PROVIDER PROGRESS NOTE ---
Subjective - General Admit Date: 11/18/19 Procedure Date: 11/19/19 Post Op Days: 1 Procedure Performed: PLTC/S - Review of Systems Wound/Incisions: positive: Dressing dry and intact General: positive: No symptoms (Pain 2-3/10. pt notes good pain control. [place] out) HEENT: positive: No symptoms Pulmonary: positive: No symptoms Cardiovascular: positive: No symptoms Gastrointestinal: positive: No symptoms, Flatus Objective - Patient Data Reviewed Vital Signs: Yes Vital Signs: Vital Signs x48h Temp Pulse Resp BP Pulse Ox 11/20/19 06:33 37.1 C 75 22 100/59 L 99 11/19/19 23:40 37.1 C 72 20 105/61 97 Weight: Weight 11/18/19 11/19/19 11/20/19 23:59 23:59 23:59 Weight (kg) 94.347 kg Intake & Output: Intake and Output Totals x24h 11/18/19 11/19/19 11/20/19 23:59 23:59 23:59 Intake Total 532.8 1910 Output Total 1650 Balance 532.8 260 - Lab Results Lab Results: 11/18/19 09:42 - Current Medications Current Medications: Current Medications Generic Name Dose Route Start Last Admin Trade Name Freq PRN Reason Stop Dose Admin Acetaminophen 1,000 mg 11/19/19 10:00 11/20/19 04:47 Tylenol PO 1,000 mg Q8H NEIL Administration Docusate Sodium 100 mg 11/19/19 09:00 11/19/19 20:58 Colace 100mg Capsule PO 100 mg BID NEIL Administration Oxytocin/Sodium Chloride 500 mls @ 1 mls/hr 11/18/19 20:00 11/18/19 21:15 Pitocin/Sodium Chloride IV 2 milliunit/min TITR NEIL 2 mls/hr Administration Protocol 1 MILLIUNIT/MIN Lactated Ringer's 1,000 mls @ 100 mls/hr 11/19/19 09:00 11/19/19 21:16 Lr IV 100 mls/hr .Q10H NEIL Administration Misoprostol 50 mcg 11/18/19 09:00 11/18/19 14:42 Cytotec BC 50 mcg Q4H NEIL Administration - Physical Exam Wound/Incisions: positive: Dressing dry and intact, No drainage General Appearance: positive: No acute distress, Alert Respiratory: positive: Chest non-tender, No respiratory distress, Breath sounds nml Cardiovascular: positive: Regular rate & rhythm, No murmur, No gallop Abdomen: positive: Nml bowel sounds Back: negative: CVA tenderness (R), CVA tenderness (L) Extremities: negative: Calf tenderness, Giulia's sign/cords Neurologic/Psychiatric: positive: Oriented x3 Impression/Plan - Problem List Problem List: Temp 37.1 feels warm, WBC 20k watch for chorio. progressing well.
[2019-11-20] MEDS ORDERED: IBUPROFEN 800 MG TABLET PO PRN (06:59)
[2019-11-20] MEDS: DOCUSATE SODIUM 100 MG CAPSULE PO SCH ×2 (12:38→20:40)
[2019-11-20 22:39] VITALS: BP 118/70
[2019-11-21] MEDS ORDERED: DOCUSATE SODIUM 100 MG CAPSULE PO ONE (08:27)
[2019-11-21] MEDS ORDERED: IBUPROFEN 800 MG TABLET PO ONE (08:28)
--- NOTE | 2019-11-21 16:22 | Labor Flowsheet ---
Labor Flowsheet Datetime Report Generated by CPN: 11/21/2019 16:22 Datetime: 11/20/2019 21:57 VITAL SIGNS NBP Sys/Leena/Mean (mmHg): 118 : 70 : 80 Pulse: 77 LaborFlag: Labor Datetime: 11/19/2019 23:39 SpO2 (%): 98 Datetime: 11/19/2019 07:20 ASSESSMENT A Monitor Mode: External US Monitor Interventions for FHR: Ultrasound Adjusted FHR Baseline Rate : 110 FHR Baseline Changes: Bradycardia Variability: Moderate 6-25 bpm Decelerations: None Actions for Decelerations: Side to Side Category: Category I Oxygen Method: Room Air Datetime: 11/19/2019 07:19 Temperature (C): 36.9 Datetime: 11/19/2019 07:13 Pain Presence: Constant Pain Location: Abdomen; Perineum; Sacrum Pain Relief Measures: Pain Medication Given Pain Assessment Comments: Epidural bolus given at 0705-pt stating still having some pain but "gaviota r" Datetime: 11/19/2019 07:04 Epidural Procedure Other: Redose Anesthesia Level Check: T6- Xyphoid Anesthesia Comments: Anesthesia here to concent pt for C section and bolus Datetime: 11/19/2019 07:00 UTERINE ACTIVITY Monitor Mode: External Monitor Interventions for UA: [place] Adjusted Frequency (min): 2-4 Quality: Moderate Duration (sec): 60-100 Pattern: Normal: <= 5 Contractions in 10 Minutes Resting Tone (Palpate): Relaxed Datetime: 11/19/2019 06:30 Accelerations: 10X10 Datetime: 11/19/2019 05:51 Patient Care Comments: Emptied the wen clear urine 1300ml Datetime: 11/19/2019 05:19 STAGE 2 Pushing: Urge to Push Pushing Position: Pushing with Contractions Pushing Progress: No Descent with Effective Pushing; Caput Noted Stage 2 Comments: Hands and knees per pt request Datetime: 11/19/2019 04:02 Pitocin Checklist: At Least 1 Acceleration of 15 bpm x 15 Seconds in 30 Minutes or Adequate Variabi lity; No More than 1 Late Deceleration Occurred in Past 30 Minutes; No More than 2 Variable Decelerat ions > 60 Seconds in Duration and decreasing >60 bpm in 30 minutes; No More than 5 Uterine Contractio ns in 10 Minutes for any 20 Minute Interval; Uterus Palpates Soft between Contractions; IUPC Resting Tone less than 25 mmHg PAIN Pain Scale: 4 Pain Type: Pressure Pain Goal: 2 Comfort Measures: Breathing/Relaxation; Coaching Datetime: 11/19/2019 03:59 MEDICATIONS Pitocin (milliunits): Increased to @ 3 m/U PROCEDURE TIME OUT Procedure Type: bolus Procedure Verify: Correct Patient Identity; Correct Side and Site are Marked; Accurate Procedure Co nsent Form; Agreement on Procedure to be Done; Correct Patient Position; Relevant Images and Results are Properly Labeled and Displayed; Addressed Need to Administer Antibiotics or Fluids for Irrigation ; Safety Precautions Based on Patient History or Medication Use ANESTHESIA Anesthesia Plans: Epidural Datetime: 11/19/2019 03:34 Provider Reviewed Strip: Yes COMMUNICATION Communication: RN at Bedside; Provider at Bedside Notification Reason: Status Update Communication Comments: POC to labor down and add Pit to get Cntxn pattern adequate for pushing Datetime: 11/19/2019 03:14 MATERNAL ASSESSMENT Level of Consciousness: Alert Nausea/Vomiting: Present Datetime: 11/19/2019 02:54 VAGINAL EXAM Dilatation (cm): 10.0 Effacement (%): 100 Datetime: 11/19/2019 02:15 Patient Position/Activity: HOB Lowered Datetime: 11/19/2019 02:02 Contraction Comments: cntxs coupling Comments: Progressing towards stage 2 Datetime: 11/19/2019 01:30 Station: -1 Exam by: Sindy Pickardr CNJose Alberto Vaginal Bleeding: None Cervix, Consistency: Soft Cervix, Position: Midposition Vaginal Exam Comments: Cervix thick on the left side Datetime: 11/19/2019 00:26 Strip Reviewed by: Sofía Peña RNC Provider Notified (Name): KelvinDiego Aguilar CNM Datetime: 11/19/2019 00:15 Medication Comments: Pit off FHR deceleration Datetime: 11/19/2019 00:02 Respirations: 18 Headache: Denies RUQ Epigastric Pain: Denies Datetime: 11/19/2019 00:01 Membranes Ruptured Date/Time: 11/18/2019 14:10 Amniotic Fluid Odor: None Datetime: 11/18/2019 23:26 Stage of : Labor Datetime: 11/18/2019 22:10 Pain Coping: Talking Through Contractions Datetime: 11/18/2019 21:31 Lie 'A': Unable to Assess Datetime: 11/18/2019 21:30 KELLEY'S SCORE Dilatation (cm): 3-4 cms Effacement: 60-70_ effaced Station: minus 2 Consistency: Soft Position: Midposition Total Kelley's Score: 8 : 5-8 = Small percentage of induction failure I/O Interventions: Wen Cath Inserted Datetime: 11/18/2019 20:35 DTR's/Clonus: No Clonus Datetime: 11/18/2019 20:31 Epidural Procedure: Loading Dose Datetime: 11/18/2019 20:26 Epidural Positioning: Sitting Datetime: 11/18/2019 20:11 PATIENT CARE IV/Blood Work: IV Bolus Started Datetime: 11/18/2019 19:30 Breath Sounds, Left: Clear and Equal Breath Sounds, Right: Clear and Equal Datetime: 11/18/2019 17:54 Temperature Route: Oral Datetime: 11/18/2019 14:42 Cervical Ripening Agents: Cervidil Datetime: 11/18/2019 14:10 Membrane Status: Ruptured Membranes Rupture Method: Spontaneous Amniotic Fluid Color: Clear Amniotic Fluid Amount: Small Membrane Comments: Pt ruptured while in bathroom. Provider notified.
--- NOTE | 2019-11-28 10:26 | OPERATIVE REPORT ---
DATE OF SERVICE: 11/19/2019 Physician: Landon Wynn MD PREOPERATIVE DIAGNOSIS: Arrest of descent. POSTOPERATIVE DIAGNOSIS: Arrest of descent. PROCEDURE: Primary low transverse section. SURGEON: Landon Wynn MD JIG MILL OPERATOR: JOSE Bill. ANESTHESIA: Jacqueline Farr CRNA. ANESTHETIC: Epidural. ESTIMATED BLOOD LOSS: 800 mL IV FLUIDS: 800 mL URINE OUTPUT: 150 mL FINDINGS: Upon entering the abdominal cavity, there was a live female noted with head deeply descended into the pelvis. There was scant amniotic fluid. The pelvis appeared to be normal, devoid of any abnormalities. PROCEDURE: Following adequate spinal anesthesia, the heart rate was noted to be running in the 105s. For this reason, it was expeditiously pushed forward on her section. The anesthetic was checked and, at this point, a Pfannenstiel incision was carried down through subcutaneous tissue, the fascia, and the fascia incised transversely. Then using both blunt and sharp dissection, it was freed from the rectus abdominis and pyramidalis. The rectus was split along the midline. Peritoneum entered high. Care was taken to avoid any injury to bowel or bladder. At this point, a bladder flap was developed using both blunt and sharp dissection. A low transverse uterine incision was accomplished. The incision was carried laterally using the finger spread technique. Then with the nurse's assistance, the head was pushed out of the pelvis and delivered through the incision. This was done with some difficulty secondary to the patient being in the middle of a contraction. Once the head was delivered, the was delivered, and the oropharynx was bulb suctioned. The cord was allowed to pulsate as the appeared to be vigorous at this time. The cord was then doubly clamped, divided, and handed to the skid road man who was standing by. A segment of cord was clamped and set aside awaiting the Apgars. At this point, a cord blood sample was obtained and sent for evaluation. The placenta was then delivered. The uterus was exteriorized, wrapped in a moist lap, and then cleansed the internal portion with a dry lap. The lower portions of the incision were grasped with ring forceps, and then this was closed using running locking suture of 0 Vicryl. There was good hemostasis noted. There was a little bit of a splaying of the tissue on the left hand side. This was recovered utilizing 0 Vicryl. The uterus was tipped forward, the cul-de-sac was suctioned clear of any clot, which was minimal, and estimated blood loss was obtained at this time. At this point, the cul-de-sac was irrigated, the uterus delivered back in the abdominal cavity. The gutters were likewise irrigated. Minimal blood was encountered in this area. The incision was once again inspected. There was no evidence of any bleeding. The peritoneum was closed utilizing 2-0 Vicryl, the rectus reapproximated with two sutures of 2-0 Vicryl. The fascia was closed utilizing looped PDS in a running suture and the subcutaneous tissue was closed utilizing 2-0 Vicryl running suture. At this point, the incision was closed using 4-0 Monocryl subcuticular and then a wound VAC was then placed with evidence of a good seal. The uterus was then expressed. Sponge and needle counts were correct. TD: 11/19/2019 08:52 RUBINA
--- NOTE | 2019-11-28 17:58 | DISCHARGE SUMMARY ---
Physician: Landon Wynn MD DATE OF ADMISSION: 11/18/2019 DATE OF DISCHARGE: 11/21/2019 ADMITTING DIAGNOSES 1. A 34-year-old G3, P0, female at 41 weeks. 2. Polycystic ovary disease. DISCHARGE DIAGNOSES 1. A 34-year-old G3, P0, female at 41 weeks. 2. Polycystic ovary disease. 3. Arrest of dilatation. 4. Primary low transverse section. PROCEDURES 1. Misoprostol x2. 2. Epidural. 3. Pitocin augmentation. 4. Primary low transverse section. PRESENTING HISTORY: Patient is a 34-year-old female who is 41 weeks EGA. This is determined b y 6 week 5-day ultrasound. She presented for induction of labor secondary to being postdates. The r emainder of her has been unremarkable. Her labs showed her to be O positive. She was rube lla immune. Her 50 gram Glucola was 114. LABORATORIES: On admission, white count was 10.3. On discharge, her white count was 17.1. Hemoglob in initially was 11.2, fell to 9.1. Her platelets were 322 and at discharge were 239. HOSPITAL COURSE: Patient was admitted, received misoprostol x2. She received an epidural for labor analgesia, as well as Pitocin augmentation. She got to 6 cm, but showed no further progress. She kuo d difficulty with some recurring late decelerations whenever she was having contractions. For this r rinku, she was taken for a primary low transverse section. At time of delivery, a live infa nt with Apgars 8 and 9, was encountered. Her recovery was unremarkable. She did not run any fevers. T-max was 37.5 and discharge, blood pressures were all normal. DISCHARGE MEDICATIONS 1. Oxycodone. 2. Motrin. She is instructed to follow up in the clinic in 1 week. TD: 11/28/2019 12:43
== END 2019-11-21 13:20 | disposition home or self-care (01) | DRG 788 ==
LOC: WFO 07:12 → FBP 07:17 → WFO 08:29 → FBP 08:30 → OBSVTOIN 15:00 → OBS 11-20 22:20
PROVIDERS: ADMIT Nurse Practitioner Obstetrics & Gynecology; ATTEND Nurse Practitioner Obstetrics & Gynecology
PROC: 10D00Z1 Extraction of Products of Conception, Low, Open Approach (ICD-10-PCS; principal; 2019-11-19 07:17)
DX: O48.0 Post-term pregnancy (principal); O62.1 Secondary uterine inertia; O76 Abnormality in fetal heart rate and rhythm complicating labor and delivery; Z37.0 Single live birth; Z3A.41 41 weeks gestation of pregnancy
CPT/HCPCS: 36415; 85025; 86850; 86900; 86901; A9270; J0131; J1170; J2795; J7120